=== PATIENT | female | born 1960 | race Caucasian/White ===

== ENCOUNTER → 2018-02-02 | Outpatient (CLI) | payer OTHER | END | disposition home or self-care (01) | LOC: KCIC MRI 11:13 | DX: S83.241A Other tear of medial meniscus, current injury, right knee, initial encounter (principal); M22.41 Chondromalacia patellae, right knee; M25.461 Effusion, right knee; X58.XXXA Exposure to other specified factors, initial encounter; Y93.89 Activity, other specified; Y92.89 Other specified places as the place of occurrence of the external cause; Y99.8 Other external cause status | CPT/HCPCS: 73721 ==

== ENCOUNTER 2018-08-09 05:42 | Day surgery (SDC) | payer OTHER ==
--- NOTE | 2018-08-08 14:19 | PDOC1 ---
History and Physical Date of Admission Date of Admission DATE: 08/09/18 Identification/Chief Complaint Chief Complaint right knee pain Source Source: Chart review History of Present Illness History of Present Illness The patient is a 57 year old female with right knee pain. MRI from 02.02.2018 at [facility] shows degenerative tear at the posterior root of the medial meniscus, anterior cruciate ligament appears thin or deficient at the femoral attachment, fibers appear straight and of normal thickness at the mid and distal aspect but there is a question of mild horizonalization, chronic partial or full thickness anterior cruciate ligament tear is possible, and patellofemoral joint chondromalacia. She states she did formal physical therapy, but it made the pain worse. The pain is severe enough that she occasionally cries at night and has to take stairs one step at a time. She is diabetic. She has been diagnosed with common variable immune deficiency. She is also currently on Warfarin and has a history of stroke. She had (general?) anesthesia a few months ago for lithotripsy, without any difficulty. Past Medical History Cardiovascular: HTN Pulmonary: Asthma CENTRAL NERVOUS SYSTEM: CVA, Migraine Heme/Onc: Other (protein C deficiency, hypogammaglobulineamia) Psych: Anxiety Renal/: Other (kidney stone) Endocrine: Diabetes Past Surgical History Past Surgical History: Cholecystectomy, Tubal Ligation, Tonsillectomy, Hysterectomy Family History Family History: Diabetes Social History Smoke: No ALCOHOL: none Drugs: None Current Medications Current Medications Active Scripts Active Reported Lovenox (Enoxaparin Sodium) 40 Mg/0.4 Ml Disp.syrin 40 Mg SQ UD [place] 10-325 Tablet (Acetaminophen/Hydrocodone Bitart) 1 Each Tablet 1 Tab PO PRN Q6HRS PRN Potassium Chloride 10 Meq Tab.sr.24h 10 Meq PO UD Montelukast Sodium Tablet (Montelukast Sodium) 10 Mg Tablet 10 Mg PO HS Zyrtec (Cetirizine Hcl) 10 Mg Tablet 10 Mg PO DAILY Magnesium (Magnesium Oxide) 400 Mg Capsule 500 Mg PO DAILY Vitamin D (Cholecalciferol (Vitamin D3)) 2,000 Unit Capsule 2,000 Unit PO DAILY Warfarin Sodium 2 Mg Tablet 4 Mg PO UD Warfarin Sodium 2 Mg Tablet 2 Mg PO UD Effexor Xr (Venlafaxine Hcl) 150 Mg Cap.er.24h 150 Mg PO DAILY Janumet 50-500 Mg Tablet (Sitagliptin Phos/Metformin Hcl) 1 Each Tablet 1 Each PO HS Bydureon Pen (Exenatide Microspheres) 2 Mg/0.65 Ml Pen.injctr 2 Mg SQ DAILY Bystolic (Nebivolol) 5 Mg Tablet 5 Mg PO DAILY Allergies Allergies: Coded Allergies: Penicillins (Verified Adverse Reaction, Intermediate, Nausea, 07/25/18) SKIN TURNS RED clarithromycin (Verified Adverse Reaction, Intermediate, 07/25/18) SKIN TURNS RED erythromycin base (Verified Adverse Reaction, Intermediate, Nausea, ) SKIN TURNS RED hydrochlorothiazide (Verified Adverse Reaction, Intermediate, Nausea, 07/25) SKIN TURNS RED metformin (Verified Adverse Reaction, Intermediate, Nausea and Vomiting, ) moxifloxacin (Verified Adverse Reaction, Intermediate, 07/25/18) SKIN TURNS RED phenazopyridine (Verified Adverse Reaction, Intermediate, Nausea, 07/25/18) SKIN TURNS RED/ venlafaxine (Verified Adverse Reaction, Intermediate, Nausea, 07/25/18) SKIN TURNS RED Physical Exam General: Alert, Oriented X3, Cooperative, No acute distress HEENT: Atraumatic, EOMI Lungs: Normal air movement Heart: RRR Abdomen: Soft Extremities: No clubbing, No cyanosis, Normal pulses, Other (RIGHT KNEE: The right knee shows normal alignment, no masses and trace effusion. There is tenderness at the medial joint line and a positive medial Jeb's test. The lateral joint line shows mild tenderness. Range of motion is 0-125 degrees. There is some patellofemoral crepitus. There is medial joint line pain with deep flexion and especially with rotation of the tibia. The knee is stable to varus and valgus stress without subluxation or laxity. The ACL feels intact on Magaly testing. Muscle strength is normal (5/5) for quadriceps and hamstrings, and muscle tone is normal. The skin is normal with no scars, rashes, lesions or ulcers. Light touch sensation is intact. No edema and no varicosities. Dorsalis pedis pulse is intact and capillary refill is normal. ) Skin: No rashes, No breakdown, No significant lesion Neuro: Normal speech, Sensation intact Psych/Mental Status: Mental status NL, Mood NL VTE Prophylaxis Ordered VTE Prophylaxis Devices: Yes VTE Pharmacological Prophylaxi: Yes Assessment/Plan Assessment/Plan Right knee medial meniscus tear. MRI shows a medial meniscus tear. We discussed options for treatment of her right knee medial meniscus tear. Non-operative treatments including living with her knee as is and modifying her activity, NSAIDs for symptomatic pain control, or cortisone injections with physical therapy were discussed with the patient. She tried therapy which seemed to make the symptoms worse. We also discussed aright knee arthroscopy with meniscectomy. The risks of surgery including the risk of undergoing anesthesia, bleeding, infection, progressive osteoarthritis, blood clots, were discussed at length. The benefits of surgery including pain relief and functional improvement of the knee were also discussed. We also discussed the postoperative course of weight restrictions, and possible physical therapy required after surgery. We discussed her somewhat increased risk due to delayed healing, from diabetes and from her common variable immune deficiency. After a thorough discussion of the risks benefits and alternatives of aright knee arthroscopy with meniscectomy the patient elected to proceed with surgery. They exhibited understanding of the risks and benefits of surgery , and all questions were answered. They will schedule at their convenience. Followup 10-14 days after surgery. GEO BETH Aug 08, 2018 14:19
[~2018-08-09] VITALS: Ht 165.1 cm; Wt 92.5 kg
[~2018-08-09 05:42] MED LIST: BUPIVAC MPF-EPI 0.5%-1:200000 30 ML VIAL. ONE; BYSTOLIC5 MG PO; CETI10TA22 PO; CHOL2000 PO; ENOX40DI SQ; EPINEPHrine VIAL 30 MG/30 ML VIAL ONE; EXEN2PEN SQ; HYDR-963 PO; MAGN400C PO; MONT10TA9 PO; POTA10TA12 PO; SITA1TAB7 PO; VENL150C PO; WARF2TAB96 PO
[2018-08-09] MEDS ORDERED: IV RINGERS,LACTATED 1000ML 1,000 ML IV SCH ×2 (05:57→07:00)
[2018-08-09] MEDS ORDERED: CLINDAMYCIN 900MG PREMIX 50 ML IV PRN (06:00)
[2018-08-09] MEDS ORDERED: LIDOCAINE 1% PF 2 ML VIAL. ID PRN ×2 (06:00→07:00)
[2018-08-09] MEDS ORDERED: fentaNYL PF VIAL 100 MCG/2 ML VIAL IV PRN ×4 (06:00→07:00)
[2018-08-09] MEDS ORDERED: MIDAZOLAM HCL/PF 2 MG/2 ML VIAL. IV PRN (06:00)
[2018-08-09] MEDS ORDERED: OMEP20CA9 PO (06:17)
[2018-08-09] MEDS ORDERED: BUPIVACAINE MPF 0.25% 30 ML VIAL. ONE (06:32)
[2018-08-09] MEDS ORDERED: methylPREDNISolone ACETATE 80 MG/ML VIAL. ONE (06:32)
[2018-08-09] MEDS ORDERED: ONDANSETRON PF 4 MG/2 ML VIAL. IV PRN (07:00)
[2018-08-09] MEDS ORDERED: HYDROmorphone 2 MG/ML VIAL IV PRN (07:00)
[2018-08-09] MEDS ORDERED: MORPHINE SULFATE 2 MG/ML VIAL. IV PRN (07:00)
[2018-08-09] MEDS ORDERED: PROCHLORPERAZINE 10 MG/2 ML VIAL. IV PRN (07:00)
[2018-08-09] MEDS ORDERED: PROPOFOL 20 ML IV ONE (07:05)
[2018-08-09] MEDS ORDERED: MIDAZOLAM HCL/PF 2 MG/2 ML VIAL. ONE (07:06)
[2018-08-09] MEDS ORDERED: ONDANSETRON PF 4 MG/2 ML VIAL. ONE (07:06)
[2018-08-09] MEDS ORDERED: FAMOTIDINE 20 MG/2 ML VIAL ONE (07:06)
[2018-08-09] MEDS ORDERED: DEXAMETHASONE SOD PHOS 20 MG/5 ML VIAL. ONE (07:06)
[2018-08-09] MEDS ORDERED: fentaNYL PF VIAL 100 MCG/2 ML VIAL ONE ×2 (07:06→09:25)
[2018-08-09] MEDS ORDERED: ePHEDrine PF IN SALINE 50 MG/5 ML DISP.SYRIN IV ONE (07:46)
[2018-08-09] MEDS: BUPIVACAINE-EPI 0.5%-1:200000 50 ML VIAL. ONE ×2 (07:50→08:30)
[2018-08-09] MEDS ORDERED: PHENYLEPHRINE in 0.9% NACL PF 1 MG/10 ML SYRINGE. IV ONE (07:54)
[2018-08-09] MEDS ORDERED: SEVOFLURANE 31 TO 60 MINUTES. IH ONE (08:31)
--- NOTE | 2018-08-09 08:38 | PDOC4 ---
Operative Note Operative Note Date of Procedure: August 09, 2018 Preoperative Diagnosis: right knee medial meniscus tear and left knee pain Postoperative Diagnosis: right knee medial and lateral meniscus tears and left knee pain Procedures Performed: right knee arthroscopy with medial and lateral meniscectomy and left knee corticosteroid injection Surgeon: Leigha Torres MD Delivery Mgr: Radha Aguiar PA-C Anesthesia: General Estimated Blood Loss: 5 mL Specimens: none Drains: none Complications: none Tourniquet time: 30 minutes Indications for Procedure: The patient is a 57-year-old with right knee pain, unrelieved with nonoperative treatment. Exam and MRI are consistent with a meniscus tear. We talked about the risks and benefits of proceeding with an arthroscopic procedure. We talked about potential risks of ongoing pain, progressive arthritis, bleeding, infection, blood clots, or other potential surgical or anesthetic complications. All of the patient's questions about surgery were answered and they desired to proceed. Preoperatively she mentioned that the left knee is still painful and the plan is to consider an MRI of that knee in the future. In the meantime she has received a cortisone injection previously in the left knee with relief of the symptoms but the left knee is painful today. I recommended a cortisone injection into the left knee today under anesthesia, and she agrees. Written consent was obtained. Description of Operation: The patient was identified in the preoperative holding area. The correct right knee was marked by me. The left knee was marked for injection. The patient was taken to the operating room, where a general anesthetic was used. Preoperative antibiotics were given intravenously. A time-out procedure was performed. A tourniquet was placed on the upper right thigh. Radha, my care team assistant, performed a left knee cortical steroid injection using 80 mL Depo-Medrol and 2 mL of 0.5% bupivacaine. 20 mL of 0.5% bupivacaine with epinephrine was injected sterilely into the right knee joint. The limb was prepped sterilely and sterile drapes were applied. The limb was exsanguinated with an Esmarch bandage and the tourniquet was inflated to 350 mm Hg. Lateral and medial arthroscopy portals were established. The medial meniscus showed a posterior horn tear with unstable flaps. A meniscectomy was performed with basket forceps and the motorized shaver back to a smooth stable base, and the resection tapered into the middle one-third of the meniscus. The medial tibiofemoral joint showed chondromalacia Outerbridge grade III, and a shaving chondroplasty was performed removing unstable fragments of cartilage with the shaver.The intercondylar notch was free of loose bodies, and the ACL was intact , perhaps slightly degenerative, but the femoral attachment appeared anatomic despite the MRI report. The lateral tibiofemoral joint showed an extensive lateral meniscus tear involving the anterior horn. A meniscectomy was performed with basket forceps and the motorized shaver back to a smooth stable base. The lateral articular surfaces showed chondromalacia Outerbridge grade II, so a shaving chondroplasty was performed removing loose unstable fragments of articular cartilage. The patellofemoral joint showed chondromalacia Outerbridge grade III, and a shaving chondroplasty was performed removing unstable fragments of cartilage with the shaver. The suprapatellar pouch, medial and lateral gutters were free of loose bodies. Copious irrigation was used to drain all meniscal and chondral fragments, and the knee was drained of fluid. Radha closed the incisions with 3 -0 Prolene sutures. She injected an additional 30 mLs of 0.5% bupivacaine with epinephrine. A bulky sterile dressing was applied and the tourniquet was released. Radha Aguiar PA-C my care team assistant, helped throughout the procedure. She initially helped position the patient on the operating table with a thigh brace, lithotomy leg lopez and tourniquet. Intraoperatively she manipulated the knee into the correct positions for arthroscopy while I ran the arthroscope in my left hand and shaver probe or other instruments in my right hand. Finally, at the end of the case, she helped remove the lithotomy leg lopez, thigh brace and tourniquet and helped transfer the patient back to a [facility] in good condition. Needle and sponge counts were correct and there were no apparent complications. Leigha Torres MD 08/09/2018 7:34 AM LEIGHA TORRES MD Aug 09, 2018 08:38
[2018-08-09] MEDS ORDERED: oxyCODONE/APAP 5/325 1 TAB TABLET PO ONE (09:15)
[2018-08-09 10:07] VITALS: BP 110/68
== END 2018-08-09 10:07 | disposition home or self-care (01) ==
LOC: SURG 05:42
PROVIDERS: ATTEND Orthopaedic Surgery
DX: M23.321 Other meniscus derangements, posterior horn of medial meniscus, right knee (principal); M23.341 Other meniscus derangements, anterior horn of lateral meniscus, right knee; M94.261 Chondromalacia, right knee; M25.562 Pain in left knee; M19.90 Unspecified osteoarthritis, unspecified site; I10 Essential (primary) hypertension; J45.909 Unspecified asthma, uncomplicated; F41.9 Anxiety disorder, unspecified; E11.9 Type 2 diabetes mellitus without complications; Z90.49 Acquired absence of other specified parts of digestive tract; Z98.51 Tubal ligation status; Z90.710 Acquired absence of both cervix and uterus; Z79.899 Other long term (current) drug therapy; Z88.0 Allergy status to penicillin; Z88.8 Allergy status to other drugs, medicaments and biological substances; Z98.890 Other specified postprocedural states; Z86.73 Personal history of transient ischemic attack (TIA), and cerebral infarction without residual deficits
CPT/HCPCS: 20610; 29880; 82962; A7015; J0171; J1040; J1100; J2250; J2370; J2405; J2704; J3010; J3490; J7120; S0028

== ENCOUNTER → 2019-09-04 | Outpatient (CLI) | payer MEDICAID ==
[~2019-09-04] MED LIST changes: -BUPIVAC MPF-EPI 0.5%-1:200000 30 ML VIAL. ONE; -EPINEPHrine VIAL 30 MG/30 ML VIAL ONE; +HYDR-3135 PO; -HYDR-963 PO; +MONT10TA49 PO; -MONT10TA9 PO; +OMEP20CA10 PO
--- NOTE | 2019-09-04 16:40 | KCIC ---
MRI study of the right knee without contrast Clinical indications: Posterior right knee pain. History of previous surgery of the right knee one year ago. History of meniscal tears. TECHNIQUE: Noncontrast MRI sequences of the right knee were performed in all 3 planes. COMPARISON: February 02, 2018. FINDINGS: The posterior cruciate ligament is intact. There is a new finding of an anterior cruciate ligament tear. However, no pivot shift bone marrow contusion is seen. The quadriceps and patellar tendons are intact. There is abnormal signal and attenuation of the posterior horn and body of the medial meniscus. This is a new finding. The lateral meniscus appears smaller in size in comparison to the previous study. Otherwise no articular surface tear of the lateral meniscus is seen. The medial collateral ligament is intact and no meniscocapsular separation is seen. The lateral collateral ligament complex and iliotibial band and popliteus tendon are intact. No posterior lateral corner injury is seen. No bone contusion or fracture or marrow infiltrative process is seen. There is moderate degenerative spurring of the medial and lateral tibial femoral joint compartments. There is moderate chondromalacia and thinning of the articular cartilage of the medial tibiofemoral joint compartment. There is mild chondromalacia and thinning of the articular cartilage of the lateral tibiofemoral joint compartment. This has progressed especially involving the medial compartment. The patella is normally aligned. Mild chondromalacia patellae is seen. Moderate chondromalacia of the medial trochlear groove is seen. The medial and lateral retinacular ligaments are intact. A lateral plica is seen. However no medial plica is evident. There is a complex multilobulated Landa's cyst which measures 4.2 cm in greatest vertical dimension. Small knee joint effusion is seen. No loose body is seen. No muscle edema is evident. IMPRESSION: New finding of attenuation and signal abnormality of the posterior horn and body of the medial meniscus. This could represent partial meniscectomy performed in the interim. There is a history of such. If not, the findings are consistent with progressive degenerative attenuation and chronic tearing of the medial meniscus. Overall size of the lateral meniscus is smaller in comparison to the previous study. This may be due to mild progressive degenerative attenuation of this meniscus. No articular surface tear of this meniscus is seen otherwise. Chondromalacia and degenerative spurring of the medial and lateral tibial femoral joint compartments. New finding of an ACL tear without pivot shift bone marrow contusions. Mild chondromalacia patellae and moderate trochlear chondromalacia. Landa's cyst. Electronically signed by: Jose Gunderson MD (09/04/2019 4:37 PM) [id number]
== END | disposition home or self-care (01) ==
LOC: KCIC MRI 13:58
PROVIDERS: ATTEND Orthopaedic Surgery
DX: S83.511A Sprain of anterior cruciate ligament of right knee, initial encounter (principal); M22.41 Chondromalacia patellae, right knee; M25.461 Effusion, right knee; M76.891 Other specified enthesopathies of right lower limb, excluding foot; X58.XXXA Exposure to other specified factors, initial encounter; Y93.89 Activity, other specified; Y92.89 Other specified places as the place of occurrence of the external cause; Y99.8 Other external cause status
CPT/HCPCS: 73721